=== PATIENT | male | born 1930 | race Caucasian/White ===

== ENCOUNTER 2016-06-04 07:30 | Day surgery (SDC) | payer OTHER, MEDICARE ==
[~2016-06-04] VITALS: Ht 175.3 cm; Wt 81.0 kg
[~2016-06-04 07:30] MED LIST: ATORVASTATIN CA40 MG PO; CARVEDILOL25 MG PO; COREG25 M1 PO; COUMADIN3 MG PO; DAILY MULTIPLE1 EACH PO; EFFEXOR XR37.5 MG PO; ENULOSE10 GM/15 M PO; HUMALOG100 UNIT/2 SC; LASIX40 MG PO; LEVEMIR FL100 UNIT/1 SC; LO-DOSE ASPIRIN81 M1 PO; METOPROLOL SUCC50 MG PO; NORVASC10 MG PO; NOVOLOG PE100 UNITS/ SC; RENA-VITE RX T1 EACH PO; THERA1 EAC1 PO; TYLENOL REGULA325 MG PO; WARFARIN SODIU7.5 MG PO
[2016-06-04 08:11] LABS: POINT-OF-CARE METER ID UU13113696
== END 2016-06-04 09:40 | disposition home or self-care (01) ==
LOC: CATH 07:30
PROVIDERS: Surgery
DX: T82.868A Thrombosis due to vascular prosthetic devices, implants and grafts, initial encounter (principal); T82.858A Stenosis of other vascular prosthetic devices, implants and grafts, initial encounter; Y83.2 Surgical operation with anastomosis, bypass or graft as the cause of abnormal reaction of the patient, or of later complication, without mention of misadventure at the time of the procedure; N18.6 End stage renal disease; Z99.2 Dependence on renal dialysis
CPT/HCPCS: 82948; C1725; C1757; C1769; C1874; C1894; C2628; J1644; J2250; J3010; S0020